=== PATIENT | male | born 1940 | race Caucasian/White ===

== ENCOUNTER 2020-06-21 09:20 | Outpatient (CLI) | payer MEDICARE | END 2020-06-21 09:21 | disposition home or self-care (01) | LOC: CSHWCC 09:20 | PROVIDERS: ATTEND Nurse Practitioner Family | DX: L89.151 Pressure ulcer of sacral region, stage 1 (principal); F03.90 Unspecified dementia, unspecified severity, without behavioral disturbance, psychotic disturbance, mood disturbance, and anxiety; H91.20 Sudden idiopathic hearing loss, unspecified ear; M13.80 Other specified arthritis, unspecified site; Z74.01 Bed confinement status; Z85.828 Personal history of other malignant neoplasm of skin | CPT/HCPCS: 97139; G0463; 99203 ==